=== PATIENT | male | born 1935 | race Caucasian/White ===

== ENCOUNTER 2016-10-10 05:15 | Inpatient (IN) | payer OTHER ==
[2016-09-18 13:18] LABS: HEMATOCRIT 37.5 % (42.0-52.0); HEMOGLOBIN 12.4 gm/dL (14.0-18.0); MCH 29.8 pg (26.0-34.0); MCHC 33.1 g/dL (28.0-37.0); RBC 4.16 mil/uL (4.50-6.00); RDW 15.8 % (10.5-14.5); WBC 6.1 thou/uL (4.0-11.0)
[2016-09-18 13:20] LABS: URINE BILIRUBIN NEGATIVE (Negative); URINE BLOOD NEGATIVE (Negative); URINE COLOR YELLOW; URINE GLUCOSE-RANDOM* NEGATIVE (Negative); URINE KETONES TRACE (Negative); URINE LEUKOCYTES-REFLEX NEGATIVE (Negative); URINE PROTEIN (DIPSTICK) 1+ (Negative); URINE SPECIFIC GRAVITY 1.025 (1.003-1.035); URINE UROBILINOGEN 0.2 E.U./dl (0.2-1.0)
[2016-09-18 13:29] LABS: ALBUMIN 3.7 g/dL (3.4-5.0); CALCIUM 9.8 mg/dL (8.5-10.1); CREATININE 1.5 mg/dL (0.6-1.3); POTASSIUM 3.2 mmol/L (3.5-5.1)
[2016-09-18 13:31] LABS: AMORPHOUS URATES Moderate /LPF (None Seen); CASTS None Seen /LPF (None Seen); HYALINE CASTS >10 Many /LPF (None Seen); SQUAMOUS None Seen /LPF (0-3); URINE RBC 0-2 Rare /HPF (0-2); URINE WBC-REFLEX 0-5 Rare /HPF (0-5)
[2016-09-18 13:38] LABS: PROTIME 10.5 Seconds (9.3-11.4)
[~2016-10-10] VITALS: Ht 180.3 cm; Wt 89.4 kg
[2016-10-10] VITALS (9 sets, daily range): BP systolic 96–139; BP diastolic 60–71
--- NOTE | ~2016-10-10 | EKG ---
[address] [place] [address] ELECTROCARDIOGRAM REPORT Name: SIA MENDEZJonathan MCCRACKEN Room #: 215-P ADM IN M.R.#: [id number] Admission: 10/10/16 Attend Phys: Gómez Saldaña MD Discharge: Date of : 37 Report #: [id number] THIS REPORT FOR: //name// [facility] Test Date: 2016-10-12 Test Time: 18:00:56 Pat Name: LUIS ANTONIO MENDEZ Department: Room: 215 Gender: M Traffic Control Specialist: Tessy BENSON : 1935 Requested By: Kar Almeida Order Number: [id number] MD: Mohamud Teresa Measurements Intervals [place] Rate: 64 P: TX: QRS: 96 QRSD: 86 T: QT: 403 QTc: 416 Interpretive Statements Junctional rhythm Right axis deviation Low voltage, extremity leads Borderline repolarization abnormality No previous ECG available for comparison Electronically Signed On 10-13-2016 8:31:11 CDT by Mohamud Teresa [email or web address] <ELECTRONICALLY SIGNED> By: Mohamud Teresa MD, [facility] 10/13/16 0831 1800 1800 Mohamud Teresa MD, FACC /EPI
--- NOTE | ~2016-10-10 | O ---
[facility] [place] [address] OPERATIVE REPORT Name: LUIS ANTONIO MENDEZ Room #: 215-P ADM IN M.R.#: [id number] Admission: 10/10/16 Attend Phys: Gómez Saldaña MD Discharge: Date of : 37 Report #: [id number] THIS REPORT FOR: //name// CC: Hansel Saldaña DATE OF SERVICE: 10/10/2016 PREOPERATIVE DIAGNOSIS: Right knee degenerative joint disease, severe. POSTOPERATIVE DIAGNOSIS: Right knee degenerative joint disease, severe. PROCEDURE: Right total knee arthroplasty. SURGEON: Gómez Saldaña MD HOME ENERGY RATER: Teodoro Dukes, nurse practitioner. INDICATIONS FOR HOME ENERGY RATER: During the course of operation, extensive manipulation, retraction and limb positioning was required. This was afforded to me by my anesthesiologists' assistant. ANESTHETIC: General. INDICATIONS: See hospital H and P. IMPLANTS UTILIZED: Used a DePuy PFC knee system. We used a size 4 cruciate retaining femoral component, size 4 tibial tray with a 10 mm insert and a 41 mm oval dome patella. DESCRIPTION OF PROCEDURE: After adequate general anesthesia had been obtained, the patient's right lower extremity was prepped and draped in the usual meticulous sterile fashion. Limb was exsanguinated with gravity, tourniquet inflated to 350 torr. Anterior midline incision was made. SubQ divided sharply. Hemostasis obtained with electrocautery. Medial parapatellar incision was made. Infrapatellar fat pad excised. Medial release performed. The drill was used to drill the distal femur. This hole was enlarged, irrigated, suctioned, and the intramedullary guide placed to the full length of the femur. The distal femoral cutting guide pinned to appropriate location and the distal femoral cut was made. The measuring device determined a size 4 as appropriate size for this patient. We marked the distal femur, impacted the cutting guide into place and the anterior, posterior and chamfer cuts were made. Rongeur was used to remove additional osteophytes. At this time, the ACL was transected, tibia translated anteriorly, menisci were [facility] [address] [place] [address] OPERATIVE REPORT Name: LUIS ANTONIO MENDEZ BILLERICA Room #: 215-P ADM IN M.R.#: [id number] Admission: 10/10/16 Attend Phys: Gómez Saldaña MD Discharge: Date of : 37 Report #: [id number] excised. Drill was used to drill central portion of the tibia. This hole was enlarged, irrigated, suctioned, and the intramedullary guide placed to the full length of tibia. Proximal tibia cutting guide was placed at appropriate height. Proximal tibia cut was made. The size 4 tray gave us the best coverage on the tibia. Trial components were put in position with the 10 spacer, he had the best flexion and extension gap. Patella tracked normally. At this time, patella was measured, cutting guide clamped into place, patellar cut was made. A 41 template gave us the best coverage. Pedicles were drilled, trial component put in position, and it tracked normally. At this time, the knee was taken through several cycles of flexion and extension. Tibial tray rotation was marked. Distal femur was drilled. Trial components were removed. Tibial keel cuts were made. The knee was irrigated with both pulse lavage and antibiotic irrigation. Bone plugs were placed in proximal tibia and the distal femur. The cement was vacuum mixed and when it reached the appropriate consistency, the knee was thoroughly dried, the tibial tray was cemented in place, and excess cement was removed. The polyethylene was impacted into place and the femur impacted in place. The knee was taken out to 30 degrees of flexion, uniform compression placed across components. Patellar button was then cemented into place and again excess cement was removed. Irrigation was placed in the wound and allowed to rest in the wound until the cement fully cured. When it had done so, the knee was irrigated, dried thoroughly and inspected. Drains were placed superolaterally both deep and superficial. The retinacular layer closed with combination of interrupted [id number] #1 Vicryl as well as running #1 Tevdek. SubQ closed with 2-0 Monocryl, skin closed with denise. Sterile compressive dressing was complied. Tourniquet then deflated. <ELECTRONICALLY SIGNED> By: Gómez Saldaña MD 10/15/16 2244 1022 1114 Gómez Saldaña MD /nt
--- NOTE | ~2016-10-10 | HC ---
[facility] [place] [address] CONSULTATION Name: LUIS ANTONIO MENDEZ Room #: 215-P ADM IN M.R.#: [id number] Admission: 10/10/16 Attend Phys: Gómez Saldaña MD Discharge: Date of : 37 Report #: [id number] THIS REPORT FOR: //name// CC: Hansel Saldaña HISTORY OF PRESENT ILLNESS: The patient is an 81-year-old white male with worsening degenerative arthritis, unresponsive to conservative measures. He was admitted to [facility] and underwent a right total knee arthroplasty on 10/10/2016. Postoperatively, he has had complications with acute respiratory failure, question pneumonia, has been started on clindamycin IV. He actually needed up to 15 liters initially of oxygen and is now currently on 6 liters. Chest x-ray revealed bibasilar opacification suggesting atelectasis versus pneumonitis. Small right effusion. V/Q scan showed low probability for pulmonary embolic disease. We are seeing him in rehabilitation medicine consultation. PAST MEDICAL HISTORY: Includes hypertension, CHF, elevated cholesterol, GERD, prostate CA status post radiation. PAST SURGICAL HISTORY: Hemorrhoidectomy, sigmoidoscopy, right knee arthroscopy, colonoscopy, and T and A. MEDICATIONS: Please see the full medication listing. ALLERGIES: No known drug allergies. SOCIAL HISTORY: Lives in a condominium alone, 4 steps in, premorbid community ambulator with a cane. His lives in [place]. He notes that they are , but that she could assist if need be. He also has involved neighbors that could assist. REVIEW OF SYSTEMS: Did not offer any current complaints of chest pain. He does have shortness of breath with limited activity, some knee discomfort as expected. No other focal extremity pain complaints. FAMILY HISTORY: Noncontributory. PHYSICAL EXAMINATION: GENERAL: An 81-year-old white male, in no obvious distress. VITAL SIGNS: Last recorded temperature 97.6, pulse 73, respirations 22, blood pressure 179/60. NEUROLOGIC: He is alert, pleasant, and oriented. HEENT: Appeared to be benign. Cranial nerves are grossly intact. He has nasal prong O2, currently on 6 liters. EXTREMITIES: Functional range of motion of both upper extremities. Strength is grade 4+/5. DTRs are 1. His right knee is dressed. He is able to dorsiflex [facility] [address] [place] [address] CONSULTATION Name: LUIS ANTONIO MENDEZ Room #: 215-P [facility] IN M.R.#: [id number] Admission: 10/10/16 Attend Phys: Gómez Saldaña MD Discharge: Date of : 37 Report #: [id number] the ankle and . Some discomfort with movement as expected. Left lower extremity functional range of motion, strength is probably a grade 4+/5. He is sit to stand for min assist. He was able to ambulate up to 30 feet mod assist with a front-wheeled walker. He needs contact guard for pericare, but has significant decreased endurance. ASSESSMENT: An 81-year-old white male with the following problem list: 1. Degenerative arthritis, status post right total knee arthroplasty on 10/10/2016. 2. Acute respiratory failure, question pneumonia, is currently on IV vancomycin and has significant O2 needs. 3. History of congestive heart failure. 4. Hypertension. 5. Elevated cholesterol. 6. Bradycardia noted during the postoperative period. PLAN: The patient would meet criteria for a short acute in-hospital inpatient rehabilitation stay. From a preadmission screening perspective: 1. Prior level of function is well delineated above. 2. Expect level of improvement would be for the patient to improve as far as functional mobility and ADLs and to wean off his oxygen, try to get him back to the home setting. He does lives by himself, although he has some limited assistance that could potentially help as noted above. We would expect a short length of stay of probably 5 days. 3. Evaluation of the patient's risk for clinical complications. He does have the above noted comorbidities. 4. Condition that caused the need for rehabilitation would be the degenerative arthritis of the knee, status post total knee arthroplasty with acute respiratory failure. 5. Treatments needed would include PT and OT 1-1-1/2 hours per day each five days a week throughout the duration of the acute inpatient rehabilitation stay. 6. Anticipated discharge destination would be back to the home setting. 7. We would anticipate home healthcare therapies once he is ready for discharge back to the home setting. 8. The patient meets diagnostic criteria for an acute in-hospital inpatient rehabilitation stay. He meets medical necessity criteria and we would need to have medicine closely followed during his rehab stay with his significant pulmonary issues currently. He does have the tolerance for an acute rehab level of care and has appropriate discharge goals back to the home setting. By: [id number] Anderson Conway MD /nt
[~2016-10-10 05:15] MED LIST: ASPIRIN81 M2 PO; CALCIUM 600 +1 EAC1 PO; CARDIO PO; CARDIOTEK-RX T1 EACH PO; CO Q-10100 MG PO; FINASTERIDE5 MG PO; FISH OIL 1,0001 EAC5 PO; FLOMAX0.4 MG PO; FOLTX TABLET1 EACH PO; GLUCOSAMINE &1 EAC1 PO; K-DUR 20 MEQ T20 MEQ PO; KRILL OIL500 MG PO; LISINOPRIL20 MG PO; LOPRESSOR50 PO; NIACIN 100MG T100 M1 PO; NIFEDICAL XL60 MG PO; NIFEDIPINE ER30 M1 PO; NIFEDIPINE ER90 M1 PO; NORVASC10 MG PO; PROTONIX40 M1 PO; SUPER B COMPLE150 MG PO; TRIAMTERENE-HC1 EAC1 PO; VITAMIN B-12500 MCG PO; VITAMIN D1000 UNI1 PO; VITAMIN E400 UNIT PO; VITAMINC500 PO; ZOCOR40 MG PO
[2016-10-11] VITALS: BP 119/59
[2016-10-11 03:33] LABS: HEMATOCRIT 30.7 % (42.0-52.0); HEMOGLOBIN 10.1 gm/dL (14.0-18.0); MCH 30.3 pg (26.0-34.0); MCHC 32.9 g/dL (28.0-37.0); MCV 92.1 fL (80.0-100.0); RBC 3.34 mil/uL (4.50-6.00); RDW 15.9 % (10.5-14.5); WBC 12.1 thou/uL (4.0-11.0)
[2016-10-11 04:00] VITALS: BP 125/64
[2016-10-11 10:21] LABS: CREATININE 2.4 mg/dL (0.6-1.3); POTASSIUM 4.1 mmol/L (3.5-5.1)
[2016-10-11 16:32] VITALS: BP 112/52
[2016-10-11 20:00] VITALS: BP 114/51
[2016-10-12 04:00] VITALS: BP 127/58
[2016-10-12 05:26] LABS: HEMATOCRIT 32.3 % (42.0-52.0); HEMOGLOBIN 10.8 gm/dL (14.0-18.0); MCHC 33.3 g/dL (28.0-37.0); MCV 92.9 fL (80.0-100.0); PLATELET COUNT 198 thou/uL (150-400); RBC 3.47 mil/uL (4.50-6.00); RDW 16.3 % (10.5-14.5); WBC 10.9 thou/uL (4.0-11.0)
[2016-10-12 05:35] LABS: ALBUMIN 2.7 g/dL (3.4-5.0); CALCIUM 8.6 mg/dL (8.5-10.1); CREATININE 2.1 mg/dL (0.6-1.3); MAGNESIUM 1.8 mg/dL (1.8-2.4); POTASSIUM 4.9 mmol/L (3.5-5.1); TOTAL BILIRUBIN 0.3 mg/dL (<0.1-1.0); TOTAL PROTEIN 6.4 g/dL (6.4-8.2)
[2016-10-12 05:40] LABS: MANUAL DIFF YES
[2016-10-12 07:50] VITALS: BP 142/72
[2016-10-12 08:04] LABS: ABSOLUTE NEUTROPHILS 9.2 thou/uL (1.4-8.2); METAMYELOCYTES 1 %; TOTAL CELL COUNT 100
[2016-10-12 08:05] LABS: ANISOCYTOSIS 1+; LARGE PLATELETS OCCASIONAL; OVALOCYTES 1+
[2016-10-12 11:59] VITALS: BP 142/72
[2016-10-12 15:44] VITALS: BP 139/61
[2016-10-12 19:22] LABS: ABG SAMPLE TYPE ARTERIAL; BE(vivo) -6.9 mmol/L (-2 to +3); HCO3 16.5 mmol/L (22.0-26.0); LACTATE 1.61 mmol/L (0.5-2.0); O2(CT) 16.2 mL/dL (15.0-23.0); O2Hb 90.8 % (92.0-98.0); PCO2 27.5 mmHg (35.0-45.0); PO2 64.5 mmHg (80.0-100.0); pH 7.396 (7.360-7.450); tCO2 17.3 mmol/L (24.0-30.0)
[2016-10-12 19:23] LABS: ABG COMMENT PT ON NON REBREATHER; STICK SITE LRA
[2016-10-12 21:40] VITALS: BP 173/88
[2016-10-13 00:32] VITALS: BP 148/69
[2016-10-13 03:50] LABS: HEMOGLOBIN 10.7 gm/dL (14.0-18.0); MCH 30.8 pg (26.0-34.0); MCHC 33.6 g/dL (28.0-37.0); MCV 91.8 fL (80.0-100.0); RBC 3.48 mil/uL (4.50-6.00); RDW 16.4 % (10.5-14.5); WBC 13.1 thou/uL (4.0-11.0)
[2016-10-13 04:04] VITALS: BP 151/66
[2016-10-13] MEDS ORDERED: XARELTO10 MG PO (07:03)
[2016-10-13] MEDS ORDERED: PERCOCET 10-321 EACH PO (07:03)
[2016-10-13] MEDS ORDERED: HYDROCODONE-APA1 TA1 PO (07:07)
[2016-10-13 07:30] VITALS: BP 140/62
[2016-10-13 11:25] VITALS: BP 179/60
[2016-10-13 15:50] VITALS: BP 140/62
[2016-10-13 19:20] VITALS: BP 146/58
[2016-10-14 04:06] VITALS: BP 150/76
[2016-10-14 04:20] LABS: HEMOGLOBIN 10.1 gm/dL (14.0-18.0); MCHC 33.8 g/dL (28.0-37.0); MCV 91.7 fL (80.0-100.0); PLATELET COUNT 203 thou/uL (150-400); RBC 3.27 mil/uL (4.50-6.00); RDW 16.5 % (10.5-14.5); WBC 10.1 thou/uL (4.0-11.0)
[2016-10-14 04:25] LABS: MANUAL DIFF YES
[2016-10-14 04:41] LABS: CALCIUM 8.6 mg/dL (8.5-10.1); CREATININE 1.6 mg/dL (0.6-1.3); POTASSIUM 4.7 mmol/L (3.5-5.1)
[2016-10-14 04:57] LABS: ABSOLUTE NEUTROPHILS 9.2 thou/uL (1.4-8.2); TOTAL CELL COUNT 100
[2016-10-14 04:58] LABS: ANISOCYTOSIS SLIGHT; POIKILOCYTOSIS SLIGHT; POLYCHROMASIA SLIGHT
[2016-10-14 07:55] VITALS: BP 159/81
[2016-10-14 11:20] VITALS: BP 160/82
[2016-10-14 15:45] VITALS: BP 144/67
[2016-10-14 20:21] VITALS: BP 147/65
[2016-10-15 03:49] VITALS: BP 139/77
[2016-10-15 08:20] VITALS: BP 141/79
[2016-10-15 11:15] VITALS: BP 128/67
[2016-10-15 16:10] VITALS: BP 139/72
[2016-10-15 20:26] VITALS: BP 138/78
[2016-10-16 04:14] LABS: HEMATOCRIT 26.1 % (42.0-52.0); HEMOGLOBIN 8.9 gm/dL (14.0-18.0); MCH 31.1 pg (26.0-34.0); MCHC 34.1 g/dL (28.0-37.0); MCV 91.2 fL (80.0-100.0); PLATELET COUNT 217 thou/uL (150-400); RBC 2.87 mil/uL (4.50-6.00); RDW 16.5 % (10.5-14.5); WBC 7.7 thou/uL (4.0-11.0)
[2016-10-16 04:15] VITALS: BP 134/79
[2016-10-16 04:16] LABS: MANUAL DIFF YES
[2016-10-16 04:33] LABS: CALCIUM 8.3 mg/dL (8.5-10.1); CREATININE 1.5 mg/dL (0.6-1.3); POTASSIUM 3.9 mmol/L (3.5-5.1); TOTAL BILIRUBIN 0.7 mg/dL (<0.1-1.0); TOTAL PROTEIN 5.7 g/dL (6.4-8.2)
[2016-10-16 04:52] LABS: ABSOLUTE NEUTROPHILS 6.5 thou/uL (1.4-8.2); ANISOCYTOSIS 1+; OVALOCYTES OCCASIONAL; TOTAL CELL COUNT 100
[2016-10-16 07:35] VITALS: BP 145/83
[2016-10-16 11:15] VITALS: BP 134/66
[2016-10-16 15:25] VITALS: BP 134/72
[2016-10-16 20:50] VITALS: BP 149/60
[2016-10-17 04:37] VITALS: BP 133/72
[2016-10-17 07:11] VITALS: BP 130/75
[2016-10-17 11:03] VITALS: BP 116/62
== END 2016-10-17 15:40 | DRG 469 ==
LOC: TBA 05:15 → 5S 05:15 → PRE 12:38 → 2N 10-12 21:38
PROVIDERS: Family Medicine; Internal Medicine Geriatric Medicine; Nurse Practitioner; Nurse Practitioner Family; Orthopaedic Surgery
PROC: 0SRC0J9 Replacement of Right Knee Joint with Synthetic Substitute, Cemented, Open Approach (ICD-10-PCS; principal; 2016-10-10)
DX: M17.11 Unilateral primary osteoarthritis, right knee (principal); J96.00 Acute respiratory failure, unspecified whether with hypoxia or hypercapnia; I13.0 Hypertensive heart and chronic kidney disease with heart failure and stage 1 through stage 4 chronic kidney disease, or unspecified chronic kidney disease; N17.9 Acute kidney failure, unspecified; R00.1 Bradycardia, unspecified; D64.9 Anemia, unspecified; D72.829 Elevated white blood cell count, unspecified; I50.9 Heart failure, unspecified; E78.00 Pure hypercholesterolemia, unspecified; K21.9 Gastro-esophageal reflux disease without esophagitis; C61 Malignant neoplasm of prostate; N18.9 Chronic kidney disease, unspecified; E78.5 Hyperlipidemia, unspecified; N40.0 Benign prostatic hyperplasia without lower urinary tract symptoms; Z87.891 Personal history of nicotine dependence; Z79.899 Other long term (current) drug therapy
CPT/HCPCS: 10785; 10797; 50010; 50101; 50415; 50612; 50954; 51130; 51225; 51320; 51412; 51771; 52001; 52282; 53000; 53078; 53364; 56525; 56527; 62110; 62900; 64042; 64043; 70005

== ENCOUNTER 2016-11-27 17:00 | Inpatient (IN) | payer OTHER ==
--- NOTE | ~2016-11-27 | O ---
[facility] [place] [address] OPERATIVE REPORT Name: LUIS ANTONIO MENDEZ Room #: 538-P [facility] IN M.R.#: [id number] Admission: 11/27/16 Attend Phys: Gómez Saldaña MD Discharge: 11/28/16 Date of : 37 Report #: [id number] THIS REPORT FOR: //name// CC: Hansel Saldaña DATE OF SERVICE: 11/27/2016 PREOPERATIVE DIAGNOSIS: Right knee wound dehiscence from fall, status post total knee arthroplasty. POSTOPERATIVE DIAGNOSIS: Right knee wound dehiscence from fall, status post total knee arthroplasty. PROCEDURE: Right knee irrigation and debridement and primary closure of dehisced wound. SURGEON: Gómez Saldaña MD ANESTHETIC: General. INDICATIONS: See hospital H and P revisions 11/27/2016. DESCRIPTION OF PROCEDURE: After adequate general anesthesia had been obtained, the patient's right lower extremity was prepped and draped in the usual meticulous sterile fashion. The wound was extended slightly proximally and distally to allow for exploration. Fortunately, it was a blind wound with no extension through the deep layer of the retinaculum nor was there suture exposed. The wound was irrigated with 2 liters of pulse lavage irrigation followed by antibiotic irrigation. Gloves were changed and I then closed the deep portion of the wound with 3-0 Monocryl subQ, more superficially with 2-0 Monocryl and the skin with denise. Sterile compressive dressing was applied. Tourniquet was not utilized. <ELECTRONICALLY SIGNED> By: Gómez Saldaña MD 12/05/16 0720 51 29 Gómez Saldaña MD /nt
[~2016-11-27 17:00] MED LIST changes: +HYDROCODONE-APA1 TA1 PO; +PERCOCET 10-321 EACH PO; +XARELTO10 MG PO
[2016-11-27 20:49] VITALS: BP 103/70
[2016-11-27 21:48] VITALS: BP 143/81
[2016-11-27 23:15] VITALS: BP 150/64
[2016-11-28] VITALS: BP 155/62
[2016-11-28 00:57] VITALS: BP 151/69
[2016-11-28 02:02] VITALS: BP 167/73
[2016-11-28 03:41] VITALS: BP 155/67
[2016-11-28 07:22] VITALS: BP 167/87
[2016-11-28 07:46] VITALS: BP 167/87
== END 2016-11-28 14:00 | disposition home or self-care (01) | DRG 909 ==
LOC: TBA 17:00 → 4N 17:33 → 5S 17:33
PROC: 0JDN0ZZ Extraction of Right Lower Leg Subcutaneous Tissue and Fascia, Open Approach (ICD-10-PCS; principal; 2016-11-27)
DX: T81.32XA Disruption of internal operation (surgical) wound, not elsewhere classified, initial encounter (principal); Z96.659 Presence of unspecified artificial knee joint
CPT/HCPCS: 10790; 50010; 50101; 50415; 51412; 53078; 56525; 56527; 62110; 62900; 70005